=== PATIENT | female | born 1950 | race Caucasian/White ===

== ENCOUNTER → 2017-05-21 | Outpatient (CLI) | payer MEDICARE, OTHER ==
--- NOTE | 2017-05-21 12:14 | CT ---
EXAMINATION TYPE: CT abdomen pelvis wo con DATE OF EXAM: 05/21/2017 HISTORY: Right sided groin swelling and abdominal pain per technologist. Diverticulitis and hernia pe r order. CT DLP: 737 mGycm. Automated Exposure Control for Dose Reduction was Utilized. TECHNIQUE: CT scan of the abdomen and pelvis is performed with oral but without IV contrast. COMPARISON: NONE FINDINGS: Within the limitations of a non-contrast study, the following observations are made. LUNG BASES: There is partial visualization of groundglass opacity in the lingula on axial image 1 cou ld reflect edema and/or infiltrate. There is linear scarring and/or atelectasis in both lung bases ne ar diaphragm. LIVER/GB: Gallbladder is contracted in appearance and thus limited in evaluation. PANCREAS: No significant abnormality is seen. SPLEEN: No significant abnormality is seen. ADRENALS: No significant abnormality is seen. KIDNEYS: No renal stones or hydronephrosis is evident bilaterally. There is occasional left-sided pel dieter phlebolith. BOWEL: The oral contrast only reaches mid small bowel level. There is large hiatal hernia appears to have malrotation or volvulus presumed chronic. There is air-fluid level seen in distal stomach below diaphragm. Contrast is seen in duodenal sweep which is not suspiciously dilated. There are contrast f illed slightly prominent small bowel loops in the left abdomen. No greater than 3 cm dilatation is id entified. There are noncontrast filled nondilated small bowel loops in the right mid to lower abdomen and pelvis. Fecal material is seen in nondistended colon. There is right inguinal hernia containing dependent fluid and small loop of distal small bowel. There is some prominence of the bowel entering and exiting hernia sac. No greater than 3 cm bowel dilatation is noted. There is mild haziness in the mesentery in the right lower quadrant with prominent but subcentimeter lymph nodes. No suspicious wa ll thickening of the bowel is identified at this level. Normal-appearing appendix is seen best on axi al images 47 through 49 in the superior presacral space confirmed on sagittal images 32 through 34. GENITAL ORGANS: Anteverted nonenlarged uterus is noted. LYMPH NODES: No greater than 1cm abdominal or pelvic lymph nodes are appreciated. OSSEOUS STRUCTURES: Exaggerated lumbar lordosis is seen. There is grade 1 anterolisthesis of L4 on L5 . Spinal canal stenosis is present at L4-L5 level due to facet arthropathy and spondylolisthesis seen best on axial image 38. OTHER: No significant additional abnormality is seen. IMPRESSION: 1. There is right inguinal hernia containing short segment of ileum. This may be causing mild or part ial obstruction. No complete or significant partial bowel obstruction is felt present as there is no greater than 3 cm dilatation of small bowel identified. Still advise nonemergent surgical referral. 2. Note is made of large hiatal hernia with proximal gastric malrotation. 3. Note is made of significant spinal canal stenosis L4-L5 level due to facet arthropathy and spondyl olisthesis. 4. Possible limited lingular infiltrate, clinical correlation advised.
== END | disposition home or self-care (01) ==
LOC: RADCTMAIN 10:09
PROVIDERS: ATTEND Family Medicine
DX: K40.90 Unilateral inguinal hernia, without obstruction or gangrene, not specified as recurrent (principal); K44.9 Diaphragmatic hernia without obstruction or gangrene; K43.9 Ventral hernia without obstruction or gangrene; K57.90 Diverticulosis of intestine, part unspecified, without perforation or abscess without bleeding; K31.89 Other diseases of stomach and duodenum
CPT/HCPCS: 74176

== ENCOUNTER 2017-06-22 15:54 | Inpatient (IN) | payer MEDICARE, OTHER ==
[2017-06-22] MEDS ORDERED: ONDANSETRON 4 MG/2 ML VIAL IVP STA (16:19)
[2017-06-22] MEDS ORDERED: MORPHINE SULFATE 2 MG/ML SYRINGE IVP ONE ×2 (16:20→18:31)
--- NOTE | 2017-06-22 16:24 | ED ---
Lower Extremity Injury HPI - General Chief Complaint: Extremity Injury, Lower Stated Complaint: Fall-leg Pain Time Seen by Provider: 06/22/17 16:05 Source: patient, EMS Mode of arrival: EMS Limitations: no limitations - History of Present Illness Initial Comments: patient presents following a mechanical fall. Patient states she tripped over part of her tractor-trailer, injuring her right leg. Patient complains of difficulty lifting her right leg. Complains of mild "funny feeling" in her right thigh. States is feels mild swollen. Patient denies prior injury to either legs. Patient denies numbness or change in temperature. Patient denies head injury or loss of consciousness. Patient denies pain or injury to any other area of the body other than the proximal right leg. Denies back pain, neck pain, numbness, focal weakness. MD Complaint: thigh injury Onset/Timin -: hour(s) Injury: Thigh: Right Place: home Severity scale (1-10): 3 Improves With: immobilization Worsens With: movement Context: fall - Related Data Home Medications Medication Instructions Recorded Confirmed Aspirin EC [Ecotrin Low Dose] 81 mg PO DAILY 06/22/17 06/22/17 Atorvastatin [Lipitor] 10 mg PO HS 06/22/17 06/22/17 Calcium Carbonate/Vitamin D3 1 tab PO BID 06/22/17 06/22/17 [Caltrate 600 Plus D3 Tablet] Krill/Om-3/Dha/Epa/Phospho/Ast 1 cap PO DAILY 06/22/17 06/22/17 [[place]-3 Krill Oil 300 mg Sfgl] Losartan [Cozaar] 50 mg PO DAILY 06/22/17 06/22/17 Multivitamins, Thera [Multivitamin 1 tab PO DAILY 06/22/17 06/22/17 (formulary)] Omeprazole/Sodium Bicarbonate 1 cap PO HS 06/22/17 06/22/17 [Zegerid 20 mg Capsule] Allergies Allergy/AdvReac Type Severity Reaction Status Date / Time No Known Allergies Allergy Verified 06/22/17 17:53 Review of Systems ROS Statement: Those systems with pertinent positive or pertinent negative responses have been documented in the HPI. ROS Other: All systems not noted in ROS Statement are negative. Constitutional: Denies: fever, chills, weakness Eyes: Denies: vision change ENT: Denies: ear pain, dental pain, congestion Respiratory: Denies: cough, dyspnea Cardiovascular: Denies: chest pain, palpitations Endocrine: Denies: fatigue Gastrointestinal: Denies: abdominal pain, nausea, vomiting Genitourinary: Denies: urgency, dysuria Musculoskeletal: Reports: arthralgia, myalgia. Denies: back pain, joint swelling Skin: Reports: other (denies bleeding, skin abrasions, lacerations). Denies: rash Neurological: Reports: abnormal gait. Denies: headache, weakness, numbness, paresthesias, confusion Hematological/Lymphatic: Denies: easy bleeding Past Medical History Past Medical History: Hyperlipidemia, Hypertension History of Any Multi-Drug Resistant Organisms: None Reported Past Surgical History: Section Past Psychological History: No Psychological Hx Reported Smoking Status: Never smoker Past Alcohol Use History: Rare Past Drug Use History: None Reported General Exam - General Exam Comments Initial Comments: sitting up in bed smiling. No acute distress. Conversing normally. Calm, pleasant. Limitations: no limitations General appearance: alert, in no apparent distress Head exam: Present: atraumatic, normocephalic, other (no signs head trauma) Eye exam: Present: normal appearance, PERRL, EOMI ENT exam: Present: normal exam, mucous membranes moist, normal external ear exam Neck exam: Present: normal inspection. Absent: tenderness Respiratory exam: Present: normal lung sounds bilaterally. Absent: respiratory distress, wheezes, rales Cardiovascular Exam: Present: regular rate, normal rhythm GI/Abdominal exam: Present: soft. Absent: distended, tenderness, guarding, rebound Extremities exam: Present: other (Right leg shortened and externally rotated. Patient unable to actively flex R hip. Patient complains of anterior thigh pain with any minimal range of motion of any part of the R leg. Right leg neurovascularly intact. Full range of motion without pain left leg. No vertebral tenderness. Right thigh compartment soft. No skin color changes, abrasions, lacerations, edema appreciated on the body.) Back exam: Present: normal inspection. Absent: tenderness, paraspinal tenderness, vertebral tenderness Neurological exam: Present: alert, oriented X3, CN II-XII intact Psychiatric exam: Present: normal affect, normal mood Skin exam: Present: warm, dry, intact, normal color. Absent: rash, abrasion Course Vital Signs 06/22/17 06/22/17 16:04 17:16 Temperature 97.0 F L Pulse Rate 61 68 Respiratory 18 18 Rate Blood Pressure 164/80 169/77 O2 Sat by Pulse 69 L 98 Oximetry Medical Decision Making - Medical Decision Making morphine, Zofran given for pain. WIll get x-rays of the pelvis and right thigh. 17:05 x-ray shows midshaft femur fracture, 100% displaced, approximately 6 cm of shortening. Orthopedic physician on-call Dr. Desouza paged this time. Patient has been updated with all results, R thigh remains soft, sensation and pulses intact in the leg. 17:52 A/w ortho call back. Re-paged. 18:01 Pt reassessed, pain controlled, thigh compartment remains soft, sensation and pulses intact in right lower extremity. states he is scheduled to have hip surgery with Dr. Infante, they request he be paged. 18:[address] Perales, covering for Dr. Infante, updated with patient condition and results. He accepts admission to his service, requests chest x-ray, EKG, blood work for preop clearance, request consult patient's primary care physician for preop clearance, request patient's leg people and knee immobilizer. States there is not ability to do skeletal traction at this facility, states knee immobilizer will be sufficient overnight. PCP Dr. Hayden Whitlock patient notified of consultation for preop clearance. Will admit to inpatient at this time, neurovascular checks ordered. Bedrest ordered. Nothing by mouth at midnight. Knee was replaced, right lower surely remains neurovascularly intact following placement. Disposition Clinical Impression: Right femoral shaft fracture Disposition: ADMITTED IP TO THIS HOSP Condition: Good Referrals: Hayden Whitlock DO [Primary Care Provider] - 1-2 days Decision Date: 06/22/17
[2017-06-22] MEDS ORDERED: SODIUM CHLORIDE 0.9% 1,000 ML IV STA (17:12)
--- NOTE | 2017-06-22 17:25 | XR ---
EXAMINATION TYPE: XR pelvis AP view DATE OF EXAM: 06/22/2017 COMPARISON: NONE HISTORY: Hip pain TECHNIQUE: Single view FINDINGS: The pelvic ring is intact. Proximal femurs are intact. I see no evidence of a fracture. Sac roiliac joints are intact. IMPRESSION: Negative pelvis x-ray exam.
--- NOTE | 2017-06-22 17:26 | XR ---
EXAMINATION TYPE: XR femur RT DATE OF EXAM: 06/22/2017 COMPARISON: NONE HISTORY: Leg pain TECHNIQUE: 4 views FINDINGS: There is a midshaft fracture of the right femur. There is overriding of fragments. There is 100% medial displacement of the distal fragment. Hip joint appears intact. IMPRESSION: Displaced midshaft fracture right femur.
[2017-06-22] MEDS ORDERED: NALOXONE 0.4 MG/ML 1 ML VIAL IV PRN (18:12)
[2017-06-22] MEDS ORDERED: HYDROcodone/APAP 5-325MG 1 EACH TAB PO PRN (18:22)
[2017-06-22 18:33] LABS: Basophils % (A) 0 %; CH 29.5; CHCM 31.4; Eosinophils # (A) 0.1 k/uL (0-0.7); Eosinophils % (A) 1 %; HCT 43.7 % (34.0-46.0); HGB 14.2 gm/dL (11.4-16.0); Luc # (Auto) 0.28; Luc % (Auto) 2; Lymphocytes # (A) 1.2 k/uL (1.0-4.8); Lymphocytes % (A) 10 %; MCH 30.6 pg (25.0-35.0); MCHC 32.5 g/dL (31.0-37.0); MCV 94.2 fL (80.0-100.0); Mean Platelet Volume 7.5; Monocytes # (A) 0.6 k/uL (0-1.0); Monocytes % (A) 5 %; Neutrophils # (A) 9.7 k/uL (1.3-7.7); Neutrophils % (A) 81 %; RBC 4.64 m/uL (3.80-5.40); RDW 13.4 % (11.5-15.5); WBC (Perox) 12.65
[2017-06-22 18:37] LABS: Anion Gap 10 mmol/L; Blood Urea Nitrogen 23 mg/dL (7-17); Calcium 9.7 mg/dL (8.4-10.2); Carbon Dioxide 23 mmol/L (22-30); Chloride 106 mmol/L (98-107); Glucose 128 mg/dL (74-99); Non-African American GFR(MDRD) 51 (>60 ml/min/1.73 sqM); Potassium 4.7 mmol/L (3.5-5.1); Sodium 139 mmol/L (137-145)
[2017-06-22 18:47] LABS: Partial Thromboplastin Time 22.4 sec (22.0-30.0); Prothrombin Time 10.4 sec (9.0-12.0)
[2017-06-22] MEDS: MORPHINE SULFATE 4 MG/ML SYRINGE IV PRN (20:48)
[2017-06-22] MEDS ORDERED: LOSARTAN 50 MG TAB PO STA (22:00)
[2017-06-22] MEDS: ATORVASTATIN 10 MG TAB PO SCH (22:16)
[2017-06-22] MEDS: PANTOPRAZOLE 40 MG TABLET PO SCH (22:16)
[2017-06-23] MEDS: MORPHINE SULFATE 4 MG/ML SYRINGE IV PRN ×2 (04:44→11:13)
[2017-06-23 07:44] LABS: Basophils % (A) 0 %; CH 29.5; Eosinophils % (A) 1 %; HCT 39.9 % (34.0-46.0); HDW 2.14; HGB 12.6 gm/dL (11.4-16.0); Hypochromasia Slight; Luc # (Auto) 0.16; Luc % (Auto) 2; Lymphocytes # (A) 0.8 k/uL (1.0-4.8); Lymphocytes % (A) 9 %; MCH 30.1 pg (25.0-35.0); MCHC 31.5 g/dL (31.0-37.0); MCV 95.5 fL (80.0-100.0); Monocytes # (A) 0.7 k/uL (0-1.0); Monocytes % (A) 7 %; Neutrophils # (A) 7.2 k/uL (1.3-7.7); Neutrophils % (A) 81 %; RBC 4.18 m/uL (3.80-5.40); RDW 13.2 % (11.5-15.5); WBC 8.9 k/uL (3.8-10.6); WBC (Perox) 9.15
--- NOTE | 2017-06-23 07:53 | P.HPOR ---
History of Present Illness H&P Date: 06/23/17 Chief Complaint: Right leg pain The patient consents to the hospital with right thigh pain after a fall tripping over her tractor-trailer yesterday. She had no loss of consciousness. She is unable to weight bear after the injury. She was brought emergently to the hospital. She does have a history of osteoporosis. Review of Systems Constitutional: Reports as per HPI Musculoskeletal: Reports as per HPI Musculoskeletal: right: shoulder pain Past Medical History Past Medical History: Hyperlipidemia, Hypertension, Osteoarthritis (OA) Additional Past Medical History / Comment(s): Osteoporosis History of Any Multi-Drug Resistant Organisms: None Reported Past Surgical History: Section Additional Past Surgical History / Comment(s): Boutt hernia the was suppose to see Past Anesthesia/Blood Transfusion Reactions: No Reported Reaction, Previous Problems w/ Anesthesia Additional Past Anesthesia/Blood Transfusion Reaction / Comment(s): Received bad headche after Past Psychological History: No Psychological Hx Reported Smoking Status: Never smoker Past Alcohol Use History: Rare Past Drug Use History: None Reported - Past Family History Mother Family Medical History: Asthma, Cancer, Hypertension, Osteoarthritis (OA), Thyroid Disorder Additional Family Medical History / Comment(s): Breadt cancer spread Father Family Medical History: Asthma, CVA/TIA Medications and Allergies Home Medications Medication Instructions Recorded Confirmed Type Aspirin EC [Ecotrin Low Dose] 81 mg PO DAILY 06/22/17 06/22/17 History Atorvastatin [Lipitor] 10 mg PO HS 06/22/17 06/22/17 History Calcium Carbonate/Vitamin D3 1 tab PO BID 06/22/17 06/22/17 History [Caltrate 600 Plus D3 Tablet] Krill/Om-3/Dha/Epa/Phospho/Ast 1 cap PO DAILY 06/22/17 06/22/17 History [[place]-3 Krill Oil 300 mg Sfgl] Losartan [Cozaar] 50 mg PO DAILY 06/22/17 06/22/17 History Multivitamins, Thera [Multivitamin 1 tab PO DAILY 06/22/17 06/22/17 History (formulary)] Omeprazole/Sodium Bicarbonate 1 cap PO HS 06/22/17 06/22/17 History [Zegerid 20 mg Capsule] Allergies Allergy/AdvReac Type Severity Reaction Status Date / Time No Known Allergies Allergy Verified 06/22/17 20:45 Physical Examination - Hip right Tenderness with palpation: other (Right thigh moderate swelling/tenderness/ compartments soft) Pain with motion: other (Pain with any attempted range of motion right hip) - Fracture right femur Compartments: soft Distal extremity neurovascularly intact: Yes Distal joint involvement: No (Nontender right knee and ankle) Results - Labs Labs: Abnormal Lab Results - Last 24 Hours (Table) 06/22/17 06/22/17 Range/Units 17:37 17:37 WBC 12.0 H (3.8-10.6) k/uL Neutrophils # 9.7 H (1.3-7.7) k/uL BUN 23 H (7-17) mg/dL Creatinine 1.07 H (0.52-1.04) mg/dL Glucose 128 H (74-99) mg/dL H & H 06/22/17 Range/Units 17:37 Hgb 14.2 (11.4-16.0) gm/dL Hct 43.7 (34.0-46.0) % Coagulation 06/22/17 Range/Units 17:37 INR 1.0 (<1.2) Result Diagrams: 06/22/17 17:37 06/22/17 17:37 - Diagnostic results Hip x-ray: image reviewed (Displaced right proximal femoral shaft fracture, no definite blastic or lytic lesions.) Assessment and Plan Plan: I discussed with the patient her options. We will plan to proceed with intramedullary nailing of her right proximal femoral shaft fracture later today. We will institute DVT prophylaxis postoperatively. Risks and benefits were discussed at length in layman's terms. Time with Patient: Less than 30
[2017-06-23 07:56] LABS: Anion Gap 7 mmol/L; Blood Urea Nitrogen 15 mg/dL (7-17); Calcium 8.7 mg/dL (8.4-10.2); Carbon Dioxide 25 mmol/L (22-30); Chloride 107 mmol/L (98-107); Glucose 119 mg/dL (74-99); Non-African American GFR(MDRD) 54 (>60 ml/min/1.73 sqM); Potassium 4.8 mmol/L (3.5-5.1); Sodium 139 mmol/L (137-145)
[2017-06-23] MEDS: LOSARTAN 50 MG TAB PO SCH (08:23)
--- NOTE | 2017-06-23 10:19 | P.CONS ---
History of Present Illness - Reason for Consult Consult date: 06/23/17 Medical Management - Chief Complaint Right femur fracture - History of Present Illness 66-year-old female who presented to the emergency room on 06/22/2017 with a chief complaint of right leg pain. She states she was working out on her backyard and was working on her garden and had a tractor with a trailer attached to it and instead of walking around the trailer, she states that she walked across the time of the trailer and tripped and fell. She states she was unable to get up and had her assist her and came to the emergency room for evaluation. The patient has a history of hyperlipidemia, hypertension, and osteoarthritis arthritis. In the emergency room an x-ray of the femur showed a right displaced midshaft fracture of the femur. The patient also had a x-ray of the pelvis done which was negative for a fracture. The patient was admitted to the hospital under the care of Dr. Perales and consults were placed to Dr. Whitlock, the patient's primary PCP, for medical management. The patient is scheduled to undergo and intramedullary nailing of the right proximal femoral shaft fracture this afternoon. The patient was seen and examined this morning by Dr. Whitlock. She denies any chest pain or shortness of breath. She states her pain is well controlled. She is currently lying in bed with traction. She has a urinary catheter in place draining clear yellow urine. Her vital signs have been stable. Her lab work was reviewed. Review of Systems Those systems with pertinent positive or pertinent negative responses have been documented in the HPI Past Medical History Past Medical History: Hyperlipidemia, Hypertension, Osteoarthritis (OA) Additional Past Medical History / Comment(s): Osteoporosis History of Any Multi-Drug Resistant Organisms: None Reported Past Surgical History: Section Additional Past Surgical History / Comment(s): Boutt hernia the was suppose to see Past Anesthesia/Blood Transfusion Reactions: No Reported Reaction, Previous Problems w/ Anesthesia Additional Past Anesthesia/Blood Transfusion Reaction / Comm: Received bad headche after Past Psychological History: No Psychological Hx Reported Smoking Status: Never smoker Past Alcohol Use History: Rare Past Drug Use History: None Reported - Past Family History Mother Family Medical History: Asthma, Cancer, Hypertension, Osteoarthritis (OA), Thyroid Disorder Additional Family Medical History / Comment(s): Breadt cancer spread Father Family Medical History: Asthma, CVA/TIA Medications and Allergies Home Medications Medication Instructions Recorded Confirmed Type Aspirin EC [Ecotrin Low Dose] 81 mg PO DAILY 06/22/17 06/22/17 History Atorvastatin [Lipitor] 10 mg PO HS 06/22/17 06/22/17 History Calcium Carbonate/Vitamin D3 1 tab PO BID 06/22/17 06/22/17 History [Caltrate 600 Plus D3 Tablet] Krill/Om-3/Dha/Epa/Phospho/Ast 1 cap PO DAILY 06/22/17 06/22/17 History [[place]-3 Krill Oil 300 mg Sfgl] Losartan [Cozaar] 50 mg PO DAILY 06/22/17 06/22/17 History Multivitamins, Thera [Multivitamin 1 tab PO DAILY 06/22/17 06/22/17 History (formulary)] Omeprazole/Sodium Bicarbonate 1 cap PO HS 06/22/17 06/22/17 History [Zegerid 20 mg Capsule] Allergies Allergy/AdvReac Type Severity Reaction Status Date / Time No Known Allergies Allergy Verified 06/22/17 20:45 Physical Exam Vitals: Vital Signs Temp Pulse Pulse Resp BP BP Pulse Ox 06/23/17 07:00 98.4 F 80 16 139/65 95 06/23/17 00:10 98.0 F 80 16 161/75 96 06/22/17 22:14 72 180/77 06/22/17 20:17 97.7 F 71 16 171/77 96 06/22/17 19:24 98.8 F 77 18 163/77 98 06/22/17 19:07 70 18 167/78 98 06/22/17 17:16 68 18 169/77 98 06/22/17 16:04 97.0 F L 61 18 164/80 69 L Intake and Output 06/22/17 06/23/17 06/23/17 22:59 06:59 14:59 Intake Total 200 1000 Output Total 375 800 Balance 200 625 -800 Intake: Intake, IV Titration 200 1000 Amount Sodium Chloride 0.9% 1, 200 1000 000 ml @ 100 mls/hr IV . Q10H STA Rx#:[id number] Output: Urine 375 800 Uretheral ([place]) 375 800 Other: Voiding Method Indwelling Catheter Indwelling Catheter Weight 65.771 kg GENERAL: Alert and oriented. Appears in no acute distress. Pleasant. RESPIRATORY: Lungs clear bilaterally. No use of accessory muscles. Patient maintaining oxygen saturation greater than 92%. CARDIOVASCULAR: S1 and S2 noted. No murmurs auscultated. No JVD noted. EXTREMITIES: No edema noted. Palpable pedal pulses +2. Right leg currently in traction. ABDOMEN: No distention noted. Abdomen soft and round. Normal active bowel sounds auscultated 4 quadrants. No pain or tenderness noted upon palpation. Results CBC & Chem 7: 06/23/17 06:55 06/23/17 06:53 Labs: Abnormal Lab Results - Last 24 Hours (Table) 06/22/17 06/22/17 06/23/17 Range/Units 17:37 17:37 06:53 WBC 12.0 H (3.8-10.6) k/uL Neutrophils # 9.7 H (1.3-7.7) k/uL Lymphocytes # (1.0-4.8) k/uL BUN 23 H (7-17) mg/dL Creatinine 1.07 H (0.52-1.04) mg/dL Glucose 128 H 119 H (74-99) mg/dL 06/23/17 Range/Units 06:55 WBC (3.8-10.6) k/uL Neutrophils # (1.3-7.7) k/uL Lymphocytes # 0.8 L (1.0-4.8) k/uL BUN (7-17) mg/dL Creatinine (0.52-1.04) mg/dL Glucose (74-99) mg/dL Assessment and Plan Plan: ASSESSMENT: -Fall from standing with subsequent injury, present on admission -Right femur fracture, present on admission, status post fall at home from tripping over a tractor trailer -Osteoporosis -Osteoarthritis -Essential hypertension PLAN: -Surgical management per Dr. Perales -The patient is scheduled to undergo and intramedullary nailing of the right proximal femoral shaft fracture this afternoon. -Nothing by mouth at this time -EKG ordered (Not scanned into computer at this time, but hard copy in patients chart) -Pain control -Resume home meds as appropriate -Monitor labs -GI prophylaxis: Protonix 40 mg by mouth daily -DVT prophylaxis: On hold due to surgery this afternoon -Monitor vital signs and address as appropriate -Patient is medically cleared for surgery per Dr. Whitlock The above impression and plan of care have been discussed and directed by signing physician. Linn Tripathi, nurse practitioner, acting as scribe for signing physician.
[2017-06-23] MEDS ORDERED: IV FLUID CONTINUATION 600 ML IV ONE (14:32)
[2017-06-23] MEDS ORDERED: MIDAZOLAM 2 MG/2 ML VIAL IV ONE (14:41)
[2017-06-23] MEDS ORDERED: FAMOTIDINE 20 MG/2 ML VIAL IV ONE (14:45)
[2017-06-23] MEDS ORDERED: LABETALOL 5 MG/ML VIAL MDV IV ONE (14:47)
[2017-06-23] MEDS ORDERED: ONDANSETRON 4 MG/2 ML VIAL IVP ONE (14:52)
[2017-06-23] MEDS ORDERED: DEXAMETHASONE SOD PHOSPHATE 10 MG/ML 1 ML VIAL IV ONE (14:52)
[2017-06-23] MEDS ORDERED: GLYCOPYRROLATE 0.2 MG/ML 2 ML VIAL ONE (15:16)
[2017-06-23] MEDS ORDERED: ROCURONIUM BROMIDE 10 MG/ML 10 ML VIAL IV ONE (15:16)
[2017-06-23] MEDS ORDERED: PROPOFOL 10 MG/ML 20 ML VIAL IV ONE (15:16)
[2017-06-23] MEDS ORDERED: MIDAZOLAM 2 MG/2 ML VIAL ONE (15:16)
[2017-06-23] MEDS ORDERED: SUCCINYLCHOLINE CHLORIDE 100 MG/5 ML SYR IV ONE (15:16)
[2017-06-23] MEDS ORDERED: ePHEDrine SULFATE/0.9% NACL/PF 50 MG/5 ML SYRINGE IV ONE (15:16)
[2017-06-23] MEDS ORDERED: SODIUM CHLORIDE 0.9% 50 ML with ceFAZolin 2,000 MG IV ONE ×2 (15:16)
[2017-06-23] MEDS ORDERED: fentaNYL (PF) 50 MCG/ML 2 ML AMP ONE (15:16)
[2017-06-23] MEDS ORDERED: NEOSTIGMINE 1 MG/ML 10 ML VIAL ONE (15:16)
[2017-06-23] MEDS ORDERED: LIDOCAINE 1% INJ 10MG/ML (20 ML MDV) ONE (15:16)
[2017-06-23] MEDS ORDERED: LACTATED RINGERS 1,000 ML IV ONE ×3 (15:49→18:15)
[2017-06-23] MEDS ORDERED: ONDANSETRON 4 MG/2 ML VIAL IVP PRN (17:28)
[2017-06-23] MEDS ORDERED: HYDROmorphone 1 MG/ML 1 ML SYRINGE IVP PRN (17:28)
[2017-06-23] MEDS ORDERED: HYDROmorphone 0.5 MG/0.5 ML SYRINGE IVP PRN (17:28)
[2017-06-23] MEDS ORDERED: MAGNESIUM HYDROXIDE 2,400 MG/10 ML CUP PO PRN (17:28)
--- NOTE | 2017-06-23 17:36 | P.OP ---
Date of Procedure: 06/23/17 Preoperative Diagnosis: Displaced right proximal femoral shaft fracture Postoperative Diagnosis: Same Procedure(s) Performed: Trochanteric intramedullary nailing right displaced proximal femoral shaft fracture Implants: Kevin 9.3 mm x 36 cm trochanteric femoral nail Anesthesia: SUSSY Surgeon: Roberto Perales Freight Breaker #1: Saroj Price Estimated Blood Loss (ml): 75 Pathology: none sent Condition: stable Disposition: PACU Indications for Procedure: The patient's a 66-year-old female who presented after falling in her driveway injuring her right leg. She was noted have a displaced right proximal femoral shaft fracture. A discussion of the risks and benefits of operative intervention was made with patient. She opted to proceed. Operative risks to include infection, neurovascular injury, development of blood clots, possible development of nonunion, possible development of malunion and need for subsequent procedures was discussed. Informed consent was obtained. Operative Findings: As below Description of Procedure: The patient was brought to the operating room, and after induction of general anesthesia was placed supine on the fracture table. The fracture was provisionally reduced with longitudinal traction and verified on the AP and lateral views with fluoroscopy. I was able to obtain reasonable reduction. The right lower extremity was prepped and draped in normal fashion. A 6 cm incision was then made proximal to the greater trochanter in line with the femoral shaft. The skin was incised sharply. Subcu tissues were divided sharply. Electrocautery was used for hemostasis. The gluteus taylor fascia was split in line with the skin incision. Blunt dissection was made down to level the greater trochanter. A starting awl was placed in the central portion of the greater trochanter and verified with fluoroscopy. A ball-tipped guidewire was then inserted. The fracture was reduced and the ball-tipped guidewire passed down to level of the distal femur. Again this was verified with fluoroscopy. I began reaming up to 11 mm incrementally. There was good distal chatter. The proximal femur was then reamed up to 14.5 mm with the appropriate reamer. A 9.3 mm x 36 cm femoral nail was then inserted with the appropriate guide over the guidewire. The guidewire was then removed. The fracture appeared well reduced at this point. A proximal locking screw was placed in a recon mode with the alignment guide. Good purchase was obtained. The distal dynamic locking screw was placed using freehand technique with the aid of fluoroscopy. Final fluoroscopic view showed adequate reduction of the fracture and placement of the implant. The wounds were irrigated normal saline. The subcutaneous tissues were reapproximated with interrupted 2-0 Vicryl sutures. The skin was reapproximated with kellie. A sterile dressing was applied. The patient was then awoken from general anesthesia and transferred to recovery room in good condition. Blood loss was estimated at 75 mL. No complications were incurred. Sponge and needle counts were correct in the case.
[2017-06-23] MEDS ORDERED: HYDROmorphone 1 MG/ML 1 ML SYRINGE IVP ONE ×3 (17:45→18:05)
[2017-06-23] MEDS: traMADol 50 MG TAB PO SCH ×2 (18:28→21:10)
[2017-06-23 19:27] LABS: Basophils % (A) 0 %; CH 30.3; CHCM 31.7; Eosinophils % (A) 0 %; HCT 42.1 % (34.0-46.0); HDW 2.21; HGB 12.8 gm/dL (11.4-16.0); Luc # (Auto) 0.04; Luc % (Auto) 0; Lymphocytes # (A) 0.4 k/uL (1.0-4.8); Lymphocytes % (A) 3 %; MCH 29.2 pg (25.0-35.0); MCHC 30.3 g/dL (31.0-37.0); MCV 96.2 fL (80.0-100.0); Mean Platelet Volume 7.2; Monocytes # (A) 0.4 k/uL (0-1.0); Monocytes % (A) 3 %; Neutrophils % (A) 93 %; RBC 4.38 m/uL (3.80-5.40); RDW 14.4 % (11.5-15.5); WBC 11.8 k/uL (3.8-10.6); WBC (Perox) 12.03
[2017-06-23] MEDS: PANTOPRAZOLE 40 MG TABLET PO SCH (21:09)
[2017-06-23] MEDS: ATORVASTATIN 10 MG TAB PO SCH (21:10)
[2017-06-23] MEDS: SENNOSIDES-DOCUSATE SODIUM 1 EACH TAB PO SCH (21:10)
[2017-06-23] MEDS: ceFAZolin 2 GM in SODIUM CHLORIDE 0.9% 100 ML IVPB SCH (23:57)
[2017-06-24] MEDS: HYDROcodone/APAP 5-325MG 1 EACH TAB PO PRN ×2 (08:01→16:51)
[2017-06-24] MEDS: LOSARTAN 50 MG TAB PO SCH (08:01)
[2017-06-24] MEDS: ceFAZolin 2 GM in SODIUM CHLORIDE 0.9% 100 ML IVPB SCH (08:04)
[2017-06-24] MEDS ORDERED: RIVAROXABAN 10 MG TAB PO SCH (09:00)
[2017-06-24] MEDS: traMADol 50 MG TAB PO SCH ×4 (09:21→21:34)
--- NOTE | 2017-06-24 10:30 | XR ---
Limited right femur HISTORY: Fracture 5 intraoperative C-arm images document the procedure
--- NOTE | 2017-06-24 10:30 | FL ---
Fluoroscopy HISTORY: Fracture 1 minute 5 seconds fluoroscopy time supplied to the referring clinician. 5 intraoperative C-arm imag es document the procedure. See dictated report from orthopedic surgery.
--- NOTE | 2017-06-24 11:18 | P.PN ---
Subjective Progress Note Date: 06/24/17 06/23/2017 66-year-old female who presented to the emergency room on 06/22/2017 with a chief complaint of right leg pain. She states she was working out on her backyard and was working on her garden and had a tractor with a trailer attached to it and instead of walking around the trailer, she states that she walked across the time of the trailer and tripped and fell. She states she was unable to get up and had her assist her and came to the emergency room for evaluation. The patient has a history of hyperlipidemia, hypertension, and osteoarthritis arthritis. In the emergency room an x-ray of the femur showed a right displaced midshaft fracture of the femur. The patient also had a x-ray of the pelvis done which was negative for a fracture. The patient was admitted to the hospital under the care of Dr. Perales and consults were placed to Dr. Whitlock, the patient's primary PCP, for medical management. The patient is scheduled to undergo and intramedullary nailing of the right proximal femoral shaft fracture this afternoon. The patient was seen and examined this morning by Dr. Whitlock. She denies any chest pain or shortness of breath. She states her pain is well controlled. She is currently lying in bed with traction. She has a urinary catheter in place draining clear yellow urine. Her vital signs have been stable. Her lab work was reviewed. 06/24/2017 The patient was seen and examined this morning at the bedside. She underwent a trochanteric intramedullary nailing of a right displaced proximal femoral shaft fracture. The dressings to her right leg are clean dry and intact with no drainage present. She states her pain is tolerable. She is tolerating an oral diet with no nausea or vomiting. She denies chest pain or pressure. Patient is to work with PT today. Her vital signs have been stable. Lab work has been reviewed. Objective - Vital Signs Vital signs: Vital Signs Temp 97.3 F L 06/24/17 07:34 Pulse 66 06/24/17 07:34 Resp 16 06/24/17 07:34 BP 120/62 06/24/17 07:34 Pulse Ox 97 06/24/17 07:34 Intake & Output 06/23/17 06/24/17 06/24/17 18:59 06:59 18:59 Intake Total 1750 500 Output Total 2725 1150 600 Balance -975 -650 -600 Intake: IV 1750 Oral 500 Output: Urine 2650 1150 600 Uretheral (Hoffman) 1400 Estimated Blood Loss 75 Other: Voiding Method Indwelling Catheter - Exam GENERAL: Alert and oriented. Appears in no acute distress. Pleasant. RESPIRATORY: Lungs clear bilaterally. No use of accessory muscles. Patient maintaining oxygen saturation greater than 92%. CARDIOVASCULAR: S1 and S2 noted. No murmurs auscultated. No JVD noted. EXTREMITIES: No edema noted. Palpable pedal pulses +2. Right leg dressing is clean dry and intact. ABDOMEN: No distention noted. Abdomen soft and round. Normal active bowel sounds auscultated 4 quadrants. No pain or tenderness noted upon palpation. - Labs CBC & Chem 7: 06/23/17 19:10 06/23/17 06:53 Labs: Abnormal Lab Results - Last 24 Hours (Table) 06/23/17 Range/Units 19:10 WBC 11.8 H (3.8-10.6) k/uL MCHC 30.3 L (31.0-37.0) g/dL Neutrophils # 11.0 H (1.3-7.7) k/uL Lymphocytes # 0.4 L (1.0-4.8) k/uL Assessment and Plan Plan: ASSESSMENT: -Fall from standing with subsequent injury, present on admission -Right femur fracture, present on admission, status post fall at home from tripping over a tractor trailer s/p intramedullary nailing of the right proximal femoral shaft fracture -Osteoporosis -Osteoarthritis -Essential hypertension PLAN: -Surgical management per Dr. Perales -Continue regular diet -Resume home meds as appropriate -Monitor labs -PT/OT -GI prophylaxis: Protonix 40 mg by mouth daily -DVT prophylaxis: Lovenox 30mg subcu daily -Monitor vital signs and address as appropriate -Patient is medically cleared for discharge per Dr. Whitlock when cleared by ortho The above impression and plan of care have been discussed and directed by signing physician. Linn Tripathi, nurse practitioner, acting as scribe for signing physician.
[2017-06-24 11:46] LABS: Prothrombin Time 10.6 sec (9.0-12.0)
--- NOTE | 2017-06-24 11:56 | P.PN ---
Subjective Progress Note Date: 06/24/17 Principal diagnosis: Status post IM nail right femur fracture Patient is seen today resting in her hospital bed, her is present at bedside. Patient's pain is controlled at this time. Urinary catheters been discontinued. She has not been up for therapy yet. She denies any headaches, lightheadedness, chest pain, shortness of breath, fever or chills. Objective - Vital Signs Vital signs: Vital Signs Temp 97.3 F L 06/24/17 07:34 Pulse 66 06/24/17 07:34 Resp 16 06/24/17 07:34 BP 120/62 06/24/17 07:34 Pulse Ox 97 06/24/17 07:34 Intake & Output 06/23/17 06/24/17 06/24/17 18:59 06:59 18:59 Intake Total 1750 500 Output Total 2725 1150 900 Balance -975 -650 -900 Intake: IV 1750 Oral 500 Output: Urine 2650 1150 900 Uretheral (Hoffman) 1400 Estimated Blood Loss 75 Other: Voiding Method Indwelling Catheter Indwelling Catheter - Exam Right lower extremity: Incisions are clean, dry, and intact. [place] are in good position. Minimal soft tissue swelling present in the thigh. Calf is soft, no tenderness with palpation. Plantar flexion, dorsiflexion, EHL, FHL are intact. Sensory exam to light touch throughout the extremities intact, dorsal pedis pulses 2+. - Labs CBC & Chem 7: 06/23/17 19:10 06/23/17 06:53 Labs: Abnormal Lab Results - Last 24 Hours (Table) 06/23/17 Range/Units 19:10 WBC 11.8 H (3.8-10.6) k/uL MCHC 30.3 L (31.0-37.0) g/dL Neutrophils # 11.0 H (1.3-7.7) k/uL Lymphocytes # 0.4 L (1.0-4.8) k/uL Assessment and Plan Plan: Assessment: 1. Postop day #1 status post IM nail right femur fracture Plan: 1. Pain control, continue use of oral medication 2. Work with therapy today 3. Ice and elevate the lower leg 4. GI and DVT prophylaxis, will begin Lovenox bridge until Coumadin is therapeutic 5. Medical recommendations 6. Discharge planning: Planning for discharge home tomorrow Time with Patient: Less than 30
[2017-06-24] MEDS: ENOXAPARIN 30 MG/0.3 ML SYRINGE SQ SCH (13:43)
[2017-06-24] MEDS ORDERED: WARFARIN 7.5 MG TAB PO ONE (18:00)
[2017-06-24 20:34] VITALS: RESP 16
[2017-06-24] MEDS: SENNOSIDES-DOCUSATE SODIUM 1 EACH TAB PO SCH (20:35)
[2017-06-24] MEDS: ATORVASTATIN 10 MG TAB PO SCH (20:35)
[2017-06-24] MEDS: PANTOPRAZOLE 40 MG TABLET PO SCH (20:35)
[2017-06-25] MEDS: HYDROcodone/APAP 5-325MG 1 EACH TAB PO PRN (06:00)
[2017-06-25 08:02] VITALS: BP 146/92; PULSE 84; TEMP 98.2
[2017-06-25] MEDS: traMADol 50 MG TAB PO SCH ×2 (08:21→12:49)
[2017-06-25 08:22] LABS: INR 1.1 (<1.2); Prothrombin Time 11.5 sec (9.0-12.0)
[2017-06-25] MEDS: LOSARTAN 50 MG TAB PO SCH (08:22)
[2017-06-25] MEDS: ENOXAPARIN 30 MG/0.3 ML SYRINGE SQ SCH (08:22)
--- NOTE | 2017-06-25 08:29 | P.PN ---
Subjective Progress Note Date: 06/25/17 Principal diagnosis: Status post IM nail right proximal femoral shaft fracture Patient is seen today resting in her hospital bed. Patient's pain is controlled at this time. Patient's doing very well today. She denies any headaches, lightheadedness, chest pain, shortness of breath, fever or chills. Objective - Vital Signs Vital signs: Vital Signs Temp 98.2 F 06/25/17 07:00 Pulse 84 06/25/17 07:00 Resp 16 06/25/17 07:00 BP 146/92 06/25/17 07:00 Pulse Ox 94 L 06/25/17 07:00 Intake & Output 06/24/17 06/25/17 06/25/17 18:59 06:59 18:59 Intake Total 350 500 Output Total 1200 Balance -850 500 Intake: IV 350 ceFAZolin 2 gm In Sodium 350 Chloride 0.9% 100 ml @ 100 mls/hr IVPB Q8HR [facility] Rx#:[id number] Oral 500 Output: Urine 1200 Other: Voiding Method Indwelling Catheter # Voids 1 2 - Exam Right lower extremity: Incisions are clean, dry, and intact. [place] are in good position. Minimal soft tissue swelling present in the thigh. Calf is soft, no tenderness with palpation. Plantar flexion, dorsiflexion, EHL, FHL are intact. Sensory exam to light touch throughout the extremities intact, dorsal pedis pulses 2+. - Labs CBC & Chem 7: 06/23/17 19:10 06/23/17 06:53 Assessment and Plan Plan: Assessment: 1. Postop day #2 status post IM nail right femur fracture Plan: 1. Pain control, continue use of oral medication 2. Continue work with physical therapy 3. Ice and elevate the lower leg 4. GI and DVT prophylaxis, discharged home on Coumadin 5. Medical recommendations 6. Discharge planning: Patient will be discharged home today Time with Patient: Less than 30
--- NOTE | 2017-06-25 08:36 | P.DS ---
Providers Date of admission: 06/22/17 18:12 Expected date of discharge: 06/25/17 Attending physician: Roberto Perales Consults: 06/22/17 18:15 Consult Physician Routine Consulting Provider: Hayden Whitlock Reason/Comments: Preop clearance Do you want consulting provider notified?: Already Contacted Primary care physician: Hayden Whitlock [facility] Course: Date of admission: 06/22/2017 Date of discharge: 06/25/2017 Admission diagnosis: Displaced right proximal femoral shaft fracture Discharge diagnosis: Status post insertion of intramedullary nail right proximal femoral shaft fracture Attending physician: Dr. Perales Surgical procedures: Insertion of intramedullary nail right proximal femoral shaft fracture Brief history: Patient is a 66-year-old female who tripped and fell over a tractor-trailer on 06/22/2017 at her home. Patient was unable to weight bear after the injury, EMS then transported the patient to [facility]. Images demonstrated a displaced right proximal femoral shaft fracture. Our orthopedic team was consulted, the case was discussed with the emergency room staff and Dr. Perales. She was admitted under our care, and the plan for surgery on 06/23/2017. Hospital course: Details of patient's surgery can be found in operative report. Patient tolerated the procedure well and was subsequently transported to orthopedic floor. Patient's orthopeidc and medical care was provided daily. Patient had daily laboratory tests performed for evaluation of overall blood counts. Patient had daily physical therapy to include strengthening range of motion as well as education with walker ambulation. Patient was treated with Lovenox and Coumadin for their postoperative DVT prophylaxis during their inpatient stay. Patient was noted to have a relatively uneventful postoperative course. Patient reported satisfactory pain control with oral pain medications by postoperative day 0. Patient showed satisfactory progress with physical therapy. Patient moved steadily through the program and had no difficulty meeting the goals by postoperative day 2. Given patient's otherwise satisfactory course and having met physical therapy goals, plan is to discharge patient home on postoperative day 2. Discharge condition/disposition: Patient will be discharged home in stable condition. Discharge medications: Instructions are given on resumption of patient's normal daily medications per primary care recommendation, in addition patient will be prescribed [place] 5 mg/325 mg, tramadol 50 mg, Colace 100 mg, Coumadin 2.5 mg. Discharge instructions: 1. Wound care and infection precautions, keep incision dry and covered while showering, no lotions, creams, moisturizers. No soaking, tubs, pools, hottubs. Do not scrub over the incision. 2. Toe-touch weightbearing, utilize a walker 3. Ice and elevate when necessary. Do not exceed 20 minutes per hour with ice pack. 4. Utilize compression sleeve until seen at first follow up appointment. 5. Visiting nursing care. 6. Home physical therapy. 7. Pain meds and anticoagulants per prescription. 8. Pain medication has potential to cause constipation. Increase oral fluid and fiber intake. Contact primary care provider if you have not had a bowel movement within 48 hours after discharge 9. No anti-inflammatory medication until discussed at first post operative visit, this including Motrin, Aleve, Mobic, Diclofenac. 10. Follow up in office at 2 weeks postop with London Price PA-C 11. Follow up with your primary care doctor 7-10 days after discharge. 12. Contact [facility] with any questions, . Procedures: Insertion of intramedullary nail right proximal femoral shaft fracture Patient Condition at Discharge: Good Plan - Discharge Summary New Discharge Prescriptions: New Docusate [Colace] 100 mg PO DAILY #30 capsule Hydrocodone/Acetaminophen [[place] 5-325] 1 - 2 each PO Q6HR PRN #60 tab PRN Reason: Pain traMADol HCl [Ultram] 50 mg PO Q6H PRN #40 tab PRN Reason: Pain Warfarin Sodium [Coumadin] 2.5 mg PO DAILY #60 tablet No Action Omeprazole/Sodium Bicarbonate [Zegerid 20 mg Capsule] 1 cap PO HS Multivitamins, Thera [Multivitamin (formulary)] 1 tab PO DAILY Calcium Carbonate/Vitamin D3 [Caltrate 600 Plus D3 Tablet] 1 tab PO BID Aspirin EC [Ecotrin Low Dose] 81 mg PO DAILY Losartan [Cozaar] 50 mg PO DAILY Atorvastatin [Lipitor] 10 mg PO HS Krill/Om-3/Dha/Epa/Phospho/Ast [[place]-3 Krill Oil 300 mg Sfgl] 1 cap PO DAILY Discharge Medication List Aspirin EC [Ecotrin Low Dose] 81 mg PO DAILY 06/22/17 [History] Atorvastatin [Lipitor] 10 mg PO HS 06/22/17 [History] Calcium Carbonate/Vitamin D3 [Caltrate 600 Plus D3 Tablet] 1 tab PO BID [History] Krill/Om-3/Dha/Epa/Phospho/Ast [[place]-3 Krill Oil 300 mg Sfgl] 1 cap PO DAILY [History] Losartan [Cozaar] 50 mg PO DAILY 06/22/17 [History] Multivitamins, Thera [Multivitamin (formulary)] 1 tab PO DAILY 06/22/17 [History ] Omeprazole/Sodium Bicarbonate [Zegerid 20 mg Capsule] 1 cap PO HS 06/22/17 [ History] Docusate [Colace] 100 mg PO DAILY #30 capsule 06/25/17 [Rx] Hydrocodone/Acetaminophen [[place] 5-325] 1 - 2 each PO Q6HR PRN #60 tab 06/25/17 [Rx] Warfarin Sodium [Coumadin] 2.5 mg PO DAILY #60 tablet 06/25/17 [Rx] traMADol HCl [Ultram] 50 mg PO Q6H PRN #40 tab 06/25/17 [Rx] Follow up Appointment(s)/Referral(s): Hayden Whitlock DO [Primary Care Provider] - 1-2 days Saroj Price PAC [PHYSICIAN [employer]OCK [employer]ER] - 2 Weeks [facility] Visiting Nurse, [NON-STAFF] - Ambulatory/Diagnostic Orders: Prothrombin Time INR [LAB.AMB] Location: Determined By Patient Patient Instructions/Handouts: Warfarin (By mouth), Enoxaparin (By injection) Activity/Diet/Wound Care/Special Instructions: Orthopedic Discharge Instructions: 1. Wound care and infection precautions, keep incision dry and covered while showering, no lotions, creams, moisturizers. No soaking, pools, hot tubs. Do not scrub over incision. 2. Toe-touch weightbearing with utilization of walker 3. Ice and elevate when necessary. Do not exceed 20 minutes per hour with ice pack. 4. Utilize compression sleeve until seen at first follow up appointment. 5. Visiting nursing care. 6. Home physical therapy. 7. Pain meds and anticoagulants per prescription. 8. Pain medication has potential to cause constipation. Increase oral fluid and fiber intake. Contact primary care provider if you have not had a bowel movement within 48 hours after discharge. 9. No anti-inflammatory medication until discussed at first post operative visit, this including Motrin, Aleve, Mobic, Diclofenac. 10. Follow up in office at 2 weeks postop with London Price PA-C 11. Follow up with your primary care doctor 7-10 days after discharge. 12. Contact [facility] with any questions, . Coumadin instructions: 1. 5mg on 06/26/2017, 2.5mg on 06/27/2017, 2.5mg on 06/28/2017 2. INR check on 06/29/2017 Discharge Disposition: HOME WITH HOME HEALTH SERVICES
--- NOTE | 2017-06-25 11:35 | P.PN ---
Subjective Progress Note Date: 06/25/17 06/23/2017 66-year-old female who presented to the emergency room on 06/22/2017 with a chief complaint of right leg pain. She states she was working out on her backyard and was working on her garden and had a tractor with a trailer attached to it and instead of walking around the trailer, she states that she walked across the time of the trailer and tripped and fell. She states she was unable to get up and had her assist her and came to the emergency room for evaluation. The patient has a history of hyperlipidemia, hypertension, and osteoarthritis arthritis. In the emergency room an x-ray of the femur showed a right displaced midshaft fracture of the femur. The patient also had a x-ray of the pelvis done which was negative for a fracture. The patient was admitted to the hospital under the care of Dr. Perales and consults were placed to Dr. Whitlock, the patient's primary PCP, for medical management. The patient is scheduled to undergo and intramedullary nailing of the right proximal femoral shaft fracture this afternoon. The patient was seen and examined this morning by Dr. Whitlock. She denies any chest pain or shortness of breath. She states her pain is well controlled. She is currently lying in bed with traction. She has a urinary catheter in place draining clear yellow urine. Her vital signs have been stable. Her lab work was reviewed. 06/24/2017 The patient was seen and examined this morning at the bedside. She underwent a trochanteric intramedullary nailing of a right displaced proximal femoral shaft fracture. The dressings to her right leg are clean dry and intact with no drainage present. She states her pain is tolerable. She is tolerating an oral diet with no nausea or vomiting. She denies chest pain or pressure. Patient is to work with PT today. Her vital signs have been stable. Lab work has been reviewed. 06/25/2017 Patient seen and examined at the bedside. is at the bedside. She is sitting up in the chair and states she worked with physical therapy this morning. She states her pain is tolerable. She is tolerating a regular diet without nausea or vomiting. Per nursing, the patients heart rate was in the 130s this morning when she took her vitals and then she thought she heard an irregular heart rate. 12 lead EKG ordered and completed which revealed normal sinus rhythm. Patient denies chest pain, shortness of breath, or palpations. The patient is cleared for discharge from a medical standpoint. Objective - Vital Signs Vital signs: Vital Signs Temp 98.2 F 06/25/17 07:00 Pulse 84 06/25/17 07:00 Resp 16 06/25/17 07:00 BP 146/92 06/25/17 07:00 Pulse Ox 94 L 06/25/17 07:00 Intake & Output 06/24/17 06/25/17 06/25/17 18:59 06:59 18:59 Intake Total 350 500 Output Total 1200 Balance -850 500 Intake: IV 350 ceFAZolin 2 gm In Sodium 350 Chloride 0.9% 100 ml @ 100 mls/hr IVPB Q8HR [facility] Rx#:[id number] Oral 500 Output: Urine 1200 Other: Voiding Method Indwelling Catheter Toilet # Voids 1 2 - Exam GENERAL: Alert and oriented. Appears in no acute distress. Pleasant. RESPIRATORY: Lungs clear bilaterally. No use of accessory muscles. Patient maintaining oxygen saturation greater than 92%. CARDIOVASCULAR: S1 and S2 noted. No murmurs auscultated. No JVD noted. EXTREMITIES: No edema noted. Palpable pedal pulses +2. ABDOMEN: No distention noted. Abdomen soft and round. Normal active bowel sounds auscultated 4 quadrants. No pain or tenderness noted upon palpation. - Labs CBC & Chem 7: 06/23/17 19:10 06/23/17 06:53 Assessment and Plan Plan: ASSESSMENT: -Fall from standing with subsequent injury, present on admission -Right femur fracture, present on admission, status post fall at home from tripping over a tractor trailer s/p intramedullary nailing of the right proximal femoral shaft fracture -Osteoporosis -Osteoarthritis -Essential hypertension PLAN: Post operative management per Dr Perales. Patient is cleared for discharged from a medical standpoint. Patient to follow up in [address] Whitlock The above impression and plan of care have been discussed and directed by signing physician. Linn Tripathi, nurse practitioner, acting as scribe for signing physician.
[2017-06-25 12:09] VITALS: BMI 26.5
[2017-06-25] MEDS ORDERED: WARFARIN 7.5 MG TAB PO ONE (18:00)
== END 2017-06-25 14:27 | disposition home health service (06) | DRG 482 ==
LOC: EC 15:54 → 3SUR 18:12
PROVIDERS: ADMIT Orthopaedic Surgery; ATTEND Orthopaedic Surgery
PROC: 0QS806Z Reposition Right Femoral Shaft with Intramedullary Internal Fixation Device, Open Approach (ICD-10-PCS; principal; 2017-06-23 08:30)
DX: S72.301A Unspecified fracture of shaft of right femur, initial encounter for closed fracture (principal); I10 Essential (primary) hypertension; E78.5 Hyperlipidemia, unspecified; M19.91 Primary osteoarthritis, unspecified site; M81.0 Age-related osteoporosis without current pathological fracture; K21.9 Gastro-esophageal reflux disease without esophagitis; Z79.82 Long term (current) use of aspirin; Z79.899 Other long term (current) drug therapy; W01.0XXA Fall on same level from slipping, tripping and stumbling without subsequent striking against object, initial encounter; Y93.H2 Activity, gardening and landscaping; Y92.007 Garden or yard of unspecified non-institutional (private) residence as the place of occurrence of the external cause
CPT/HCPCS: 36415; 72170; 80048; 85025; 85610; 85730; 93005; 96360; 96361; 96374; 96375; 99285

== ENCOUNTER 2018-01-20 06:04 | Day surgery (SDC) | payer MEDICARE, OTHER ==
[2018-01-15 14:31] VITALS: BMI 28.3
[~2018-01-20 06:04] MED LIST: DEXAMETHASONE SOD PHOSPHATE 10 MG/ML 1 ML VIAL IV ONE; HEPARIN SODIUM,PORCINE 5,000 UNIT/ML 1 ML VIAL SQ ONE; LACTATED RINGERS 1,000 ML IV SCH; LIDOCAINE 1% 20 ML VIAL (10MG/ML) FOR IV START INTRADERMA PRN; MIDAZOLAM 2 MG/2 ML VIAL IV PRN; ONDANSETRON ODT 4 MG TAB PO ONE; SCOPOLAMINE 1.5MG/72HR PATCH TRANSDERM ONE; fentaNYL (PF) 50 MCG/ML 2 ML AMP IV PRN
[2018-01-20 06:39] VITALS: RESP 16
[2018-01-20] MEDS ORDERED: ONDANSETRON 4 MG/2 ML VIAL IVP ONE (07:06)
[2018-01-20] MEDS ORDERED: BUPIVACAINE (PF) 0.25% 30 ML VIAL SQ ONE ×3 (07:27→08:08)
[2018-01-20] MEDS: ceFAZolin IN SWFI 2 GM/20 ML SYRINGE IVP ONE ×2 (07:28→07:57)
[2018-01-20] MEDS ORDERED: NEOSTIGMINE 1 MG/ML 10 ML VIAL ONE (07:44)
[2018-01-20] MEDS ORDERED: PROPOFOL 10 MG/ML 20 ML VIAL IV ONE (07:44)
[2018-01-20] MEDS ORDERED: MIDAZOLAM 2 MG/2 ML VIAL ONE (07:44)
[2018-01-20] MEDS ORDERED: GLYCOPYRROLATE 0.2 MG/ML 2 ML VIAL ONE (07:44)
[2018-01-20] MEDS ORDERED: ePHEDrine SULFATE/0.9% NACL/PF 50 MG/5 ML SYRINGE IV ONE (07:44)
[2018-01-20] MEDS ORDERED: fentaNYL (PF) 50 MCG/ML 2 ML AMP ONE (07:44)
[2018-01-20] MEDS ORDERED: LIDOCAINE 1% INJ 10MG/ML (20 ML MDV) ONE (07:44)
[2018-01-20] MEDS ORDERED: ROCURONIUM BROMIDE 10 MG/ML 10 ML VIAL IV ONE (07:44)
[2018-01-20] MEDS ORDERED: SUCCINYLCHOLINE CHLORIDE 100 MG/5 ML SYR IV ONE (07:44)
[2018-01-20] MEDS ORDERED: HYDROcodone/APAP 5-325MG 1 EACH TAB PO PRN (09:37)
[2018-01-20] MEDS ORDERED: NALOXONE 0.4 MG/ML 1 ML VIAL IV PRN (09:37)
--- NOTE | 2018-01-20 09:42 | P.OP ---
Date of Procedure: 01/20/18 Procedure(s) Performed: PREOPERATIVE DIAGNOSIS: Right inguinal hernia POSTOPERATIVE DIAGNOSIS: Same PROCEDURE: Laparoscopic repair right inguinal hernia with the da Judd robot assistance with mesh SURGEON: Gosia EBL: Minimal ANESTHESIA: General COMPLICATIONS: None OPERATIVE PROCEDURE: Patient was placed in the operating table in the supine position. The patient was placed under general anesthesia. The patient was then placed in lithotomy. The abdomen was prepped and draped in usual sterile fashion. A small curvilinear supraumbilical incision was made. The fascia was retracted anteriorly with [place] forceps. The Veress needle was inserted. The saline drop test was normal. Insufflation took place to 15 mmHg. a 5 mm trocar was advanced and the peritoneal cavity. Later this was switched to a 12 mm trocar. 2 additional 8 mm trochars were placed in the right upper quadrant and left upper quadrant under visualization. The robotic arms were then brought in and docked into place. The fenestrated bipolar was used in the left arm and the laparoscopic addie was utilized in the right arm. A 30 12 mm scope was used in the up position. The peritoneal cavity was inspected. There were no adhesions in the abdominal cavity. I didn't inspect the patient's hiatal hernia which was quite large containing good volume of the omentum. I could not visualize how much of the stomach was actually within the hernia. The left groin appeared free of any identifiable hernia. In the right groin a moderate sized indirect hernia was identified. The peritoneum was incised in a horizontal fashion cephalad to the internal inguinal ring. Following that careful dissection of the preperitoneal space took place. This took place using both electrocautery, sharp dissection but primarily blunt dissection. Visualization of the pubic tubercle and Twin's ligament took place medially. Full dissection took place laterally as well. The hernia sac was fully dissected. The round ligament was very adherent to the peritoneum and in trying to dissect the peritoneum off of the round ligament and opening was created in the peritoneum which was later repaired using a [id number] 3-0 Vicryl suture. Given the stents adherence I decided to divide the round ligament which occurred without difficulty. This allowed me to place my mesh even lower. Once we had adequate space the 15 x 10 progrip mesh was advanced into the preperitoneal space and flattened out appropriately to cover all potential hernia sites. No sutures were used. The peritoneal defect was then closed using a locking 2-0 VLok suture. The pneumoperitoneum was then evacuated. The fascia at the 12 mm site was closed using the Ollie Gusman technique and an 0 Vicryl stitch. The skin of all 3 sites was closed using a 4- 0 Monocryl stitch. Steri-Strips and sterile dressings were applied. DISPOSITION: Stable to recovery room Disposition: same day
[2018-01-20 09:54] VITALS: TEMP 98
[2018-01-20] MEDS ORDERED: HYDROcodone/APAP 5-325MG 1 EACH TAB PO ONE (10:38)
[2018-01-20 11:15] VITALS: BP 156/78; PULSE 60
== END 2018-01-20 12:01 | disposition home or self-care (01) ==
LOC: OR 06:04
PROVIDERS: ATTEND Surgery
DX: K40.90 Unilateral inguinal hernia, without obstruction or gangrene, not specified as recurrent (principal); I10 Essential (primary) hypertension; E78.5 Hyperlipidemia, unspecified; M81.0 Age-related osteoporosis without current pathological fracture; E78.00 Pure hypercholesterolemia, unspecified; K21.9 Gastro-esophageal reflux disease without esophagitis; Z79.899 Other long term (current) drug therapy; Z86.73 Personal history of transient ischemic attack (TIA), and cerebral infarction without residual deficits
CPT/HCPCS: 49650; C1781; J2250; J1644; J1100; J2710; J2405; J2001; J3010; J0330; J2704; J0690